=== PATIENT | female | born 1995 | race American Indian/Alaskan Native ===

== ENCOUNTER 2017-02-11 21:32 | Emergency (ER) | payer MEDICAID ==
[2017-02-11 21:50] VITALS: BP 134/87
== END 2017-02-12 00:30 | disposition left against medical advice (07) ==
LOC: ED 21:32
DX: Z53.21 Procedure and treatment not carried out due to patient leaving prior to being seen by health care provider (principal)

== ENCOUNTER 2018-10-14 18:36 | Inpatient (IN) | payer MEDICAID ==
[2018-10-14] MEDS ORDERED: LACTATED RINGERS 500 ML IV ONE (19:31)
[2018-10-14] MEDS ORDERED: AMPICILLIN/NS 2 GM/100 ML 2 GM/100 ML BAG IV ONE (20:00)
[2018-10-14 20:06] LABS: Basophils # (Auto) 0.1 K/mm3 (0.0-0.1); Basophils % (Auto) 0.5 % (0.0-1.8); Eosinophils # (Auto) 0.1 K/mm3 (0.0-0.4); Eosinophils % (Auto) 1.2 % (0.0-4.3); Hematocrit 40.3 % (30.3-42.9); Hemoglobin 13.4 gm/dl (10.1-14.3); Lymphocytes # (Auto) 2.5 K/mm3 (1.2-5.4); Lymphocytes % (Auto) 22.1 % (13.4-35.0); Mean Corpuscular HGB Conc 33 % (30-34); Mean Corpuscular Volume 90 fl (79-97); Platelet Count 363 K/mm3 (140-440); Red Cell Distribution Width 14.5 % (13.2-15.2)
[2018-10-14] MEDS ORDERED: PITOCin/NS 20 UNIT/1000ML DRIP 20,000 MILLIUNITS/1,000 ML BAG IV ONE (20:32)
--- NOTE | 2018-10-14 20:48 | History and Physical Report ---
History of Present Illness Date of admission: 10/14/18 19:32 Chief complaint: uterine contractions/labor History of present illness: 23yo , 39 3/7wk, no care, LMP 01/12/2018 MARY KAY 10/18/18 based on LMP presents in active labor. She reports spotting that began yesterday, contract ions that began today and is now /-2. She reports good movement. She admits to no care but states [facility] and told her MARY KAY was 10/20/18. An US done y esterday at [facility] shows EGA 34 6/7, DANDY 7, grade 3 placenta, cephalic. Past History Past Medical History: no pertinent history Past Surgical History: no surgical history Family/Genetic History: other (denies HIV, hepatitis) Social history: no significant social history, other (no care) - Obstetrical History : 3 Hx # Term Pregnancies: 1 Number of Pregnancies: 1 Medications and Allergies Allergies Allergy/AdvReac Type Severity Reaction Status Date / Time No Known Allergies Allergy Unverified 12/29/13 17:31 Home Medications Medication Instructions Recorded Confirmed Last Taken Type Cyclobenzaprine HCl [Flexeril 5mg] 5 mg PO Q8H PRN #15 tablet 12/29/[address] [Cesar Hess] 75 mg PO Q12H PRN #14 tablet 12/29/13 Unknown Rx Active Meds: Active Medications Ampicillin Sodium (Ampicillin/Ns 2 Gm/100 Ml) 2 gm in 100 mls @ 100 mls/hr IV ONCE ONE Stop: 10/14/18 20:59 Last Admin: 10/14/18 19:54 Dose: 100 mls/hr Documented by: Ampicillin Sodium (Ampicillin/Ns 1 Gm/50 Ml) 1 gm in 50 mls @ 100 mls/hr IV Q4H KAYLA; Protocol - Vital Signs Vital signs: Vital Signs Pulse BP 85 115/72 10/14/18 18:59 10/14/18 18:59 Temp Pulse Resp BP Pulse Ox 98.9 F 75 16 134/73 10/14/18 19:17 10/14/18 20:24 10/14/18 19:17 10/14/18 20:24 - Physical Exam Abdomen: Positive: soft Vulva: both: normal - Obstetrical FHR: category 1 Cervical Dilatation: 9 Cervical Effacement Percentage: 80 station: -2 Uterine Contraction Pattern: Regular Results Result Diagrams: 10/14/18 19:33 Abnormal lab results 10/14/18 Range/Units 19:33 WBC 11.5 H (4.5-11.0) K/mm3 [place] % (Auto) 9.0 H (0.0-7.3) % [place] # 1.0 H (0.0-0.8) K/mm3 All other labs normal. Assessment and Plan - Patient Problems (1) No care in current Current Visit: Yes Status: Acute Plan to address problem: 1. No care labs (inclu. Rapid HIV) 2. GBS prophylaxis 3. Confirm presentation 4. Anticipate spontaneous vaginal delivery.
[2018-10-14] MEDS ORDERED: XYLOCAINE 2% INFILTRATI ONE (21:13)
[2018-10-14] MEDS: IBUPROFEN PO SCH (21:15)
[2018-10-14] MEDS ORDERED: TYLENOL PO PRN (21:16)
[2018-10-14] MEDS ORDERED: ZOFRAN IV PRN (21:16)
[2018-10-14] MEDS ORDERED: BENADRYL PO PRN (21:16)
[2018-10-14] MEDS ORDERED: DULCOLAX PR PRN (21:16)
[2018-10-14] MEDS ORDERED: LANSINOH TP PRN (21:16)
[2018-10-14] MEDS ORDERED: PHENERGAN PO PRN (21:16)
[2018-10-14] MEDS ORDERED: TUCKS PAD TP PRN (21:16)
--- NOTE | 2018-10-14 21:20 | Ultrasound Report ---
US OB limited INDICATION / CLINICAL INFORMATION: labor. position only. COMPARISON: Yesterday. FINDINGS: There is a single intrauterine in a cephalic presentation. The heart rate is 137 bpm. Signer Name: Carl Cross MD Signed: 10/14/2018 9:15 PM Workstation Name: [id number]
--- NOTE | 2018-10-14 21:26 | Procedure Note ---
OB Delivery Note - Delivery Estimated blood loss: other (150ml) - Vaginal Delivery position: OA Intrapartum events: no care Delivery induction: none Delivery monitor: external FHT Route of delivery: Delivery placenta: spontaneous Episiotomy: none Delivery laceration: none Anesthesia: none Delivery comments: Delivery spontaneous in lithotomy position; perineum intact. bulb suctioned and placed on maternal abdomen. NICU present after delivery states appears term. - A at 1 minute: 8 at 5 minutes: 8 (-2 color;) Infant Gender: Female (Weight 5lb 8oz 2484g)
[2018-10-14] MEDS ORDERED: SODIUM CHLORIDE FLUSH SYRINGE 10 ML IV PRN (22:00)
[2018-10-14] MEDS ORDERED: PITOCin/NS 20 UNIT/1000ML DRIP 20 UNITS/1,000 ML BAG IV SCH (22:00)
[2018-10-14] MEDS ORDERED: LACTATED RINGERS 1,000 ML IV SCH (22:00)
[2018-10-15] MEDS ORDERED: AMPICILLIN/NS 1 GM/50 ML 1 GM/50 ML BAG IV SCH
[2018-10-15 00:28] LABS: Bilirubin,Urine NEG (Negative); Blood,Urine MOD (Negative); Color,Urine Red (Yellow); Urobilinogen,Urine < 2.0 mg/dL (<2.0)
[2018-10-15 00:29] LABS: RBC,Urine > 182.0 /HPF (0.0-6.0); WBC,Urine > 182.0 /HPF (0.0-6.0)
[2018-10-15 00:35] LABS: Amphetamine Screen,Urine PRESUMPTIVE NEGATIVE; Benzodiazepines Screen,Urine PRESUMPTIVE NEGATIVE; Cannabinoid Screen,Urine PRESUMPTIVE NEGATIVE; Cocaine Screen,Urine PRESUMPTIVE NEGATIVE; Methadone Screen,Urine PRESUMPTIVE NEGATIVE; Opiate Screen,Urine PRESUMPTIVE NEGATIVE
[2018-10-15] MEDS: IBUPROFEN PO SCH ×4 (05:10→19:06)
[2018-10-15] MEDS ORDERED: BOOSTRIX IM ONE (06:00)
[2018-10-15 10:35] LABS: Hematocrit 34.9 % (30.3-42.9); Hemoglobin 11.2 gm/dl (10.1-14.3)
--- NOTE | 2018-10-15 13:18 | Progress Note ---
Assessment and Plan - Patient Problems (1) No care in current Current Visit: No Status: Acute Plan to address problem: 1. Recovering well. Given information on follow-up in office 6 weeks . 2. Denies receiving Rhogam antepartum. 3. Desires Depo-Provera - Ordered. 4. Plan discharge within 24hrs. discharge pending management of hyperbili. Subjective - Subjective Interval history: 23yo now PPD#1 doing well. Bleeding well controlled. Denies heavy bleeding. She states she lives with her brother and has what she needs for the baby. Case management saw her today and states she received resources for discharge. : other (recieving bili therapy) Objective - Vital Signs Latest vital signs: Vital Signs Temp Pulse Resp BP BP Pulse Ox 10/15/18 10:01 98.6 F 76 18 103/66 100 10/15/18 04:32 98.5 F 90 18 118/71 98 10/15/18 04:18 99.0 F 65 16 108/58 98 10/14/18 23:48 98.9 F 73 20 114/71 98 10/14/18 23:02 97 H 98 10/14/18 23:00 98.1 F 87 15 120/68 10/14/18 22:57 87 120/68 99 10/14/18 22:52 95 H 99 10/14/18 22:47 97 H 99 10/14/18 22:42 94 H 122/56 99 10/14/18 22:37 90 99 10/14/18 22:32 91 H 99 10/14/18 22:30 98.1 F 91 H 15 121/62 10/14/18 22:28 93 H 121/62 10/14/18 22:27 84 99 10/14/18 22:22 90 98 10/14/18 22:20 108 H 119/78 10/14/18 22:00 105 H 16 121/68 10/14/18 21:58 105 H 121/68 10/14/18 21:43 105 H 121/76 10/14/18 21:31 102 H 125/72 10/14/18 21:30 102 H 16 125/72 10/14/18 21:15 98.1 F 100 H 16 136/70 10/14/18 21:13 112 H 136/70 10/14/18 21:03 102 H 118/63 10/14/18 20:24 75 134/73 10/14/18 19:17 98.9 F 78 16 118/72 10/14/18 19:16 78 118/72 10/14/18 18:59 85 115/72 Intake and Output 10/14/18 10/15/18 10/15/18 23:59 07:59 15:59 Intake Total 700 Output Total 600 500 Balance 100 -500 Intake: IV 500 Lactated Ringers 500 ml @ 500 999 mls/hr IV BOLUS ONE Rx#:[id number] Oral 200 Output: Urine 600 500 Void 600 500 Other: Total, Intake Amount 200 Total, Output Amount 600 150 Weight 52.163 kg Estimated Blood Loss 150 - Exam Uterus: Present: fundal height below umbilicus Extremities: Present: normal - Labs Labs: Abnormal lab results 10/14/18 10/14/18 Range/Units 19:33 23:00 WBC 11.5 H (4.5-11.0) K/mm3 [place] % (Auto) 9.0 H (0.0-7.3) % [place] # 1.0 H (0.0-0.8) K/mm3 Urine WBC (Auto) > 182.0 H (0.0-6.0) /HPF
[2018-10-15] MEDS ORDERED: DEPO-PROVERA (CONTRACEPTION) IM ONE (21:34)
--- NOTE | 2018-10-15 21:57 | Discharge Summary ---
Providers - Providers Date of Admission: 10/14/18 19:32 Attending physician: SATISH AVILA 10/14/18 21:26 Consult to Case Management [CONS] Routine Services Needed at Discharge: Cook Manager Notified:: case management Phone number called:: [phone] Comment:: No care Additional Physician Instructions: Please see patient prior to discharge on 10/16/18. Possible history of depression in previous p regnancy and no care this . Primary care physician: [employer]IST[employer] Hospitalization Reason for admission: active labor Delivery: Episiotomy: none Laceration: none complications: none Discharge diagnosis: IUP at term delivered Condition at discharge: Good Disposition: DC-01 TO HOME OR SELFCARE - Discharge Diagnoses (1) No care in current Status: Acute Plan - Provider Discharge Summary Activity: routine, no sex for 6 weeks, no heavy lifting 4 weeks, no strenuous exercise Diet: routine Instructions: routine Additional instructions: [] Smoking cessation referral if applicable(refer to patient education folder for contact #) [] Refer to [facility] Booklet Call your doctor immediately for: * Fever > 100.5 * Heavy vaginal bleeding ( >1 pad per hour) * Severe persistent headache * Shortness of breath * Reddened, hot, painful area to leg or breast * Drainage or odor from incision. * Keep incision clean and dry at all times and follow doctor's instructions regarding bathing/showering - Follow up plan Follow up: PRIMARY CARE, [Primary Care Provider] - 7 Days
[2018-10-16] MEDS: IBUPROFEN PO SCH ×3 (04:11→15:44)
[2018-10-16] MEDS ORDERED: DEPO-PROVERA (CONTRACEPTION) IM NR (13:30)
[2018-10-16 18:00] VITALS: BP 114/70
== END 2018-10-16 16:45 | disposition home or self-care (01) | DRG 775 ==
LOC: TRG 18:36 → OBSVTOIN 19:32 → LD 19:32 → OB 23:35
PROVIDERS: ADMIT Obstetrics & Gynecology; ATTEND Obstetrics & Gynecology
PROC: 10E0XZZ Delivery of Products of Conception, External Approach (ICD-10-PCS; principal; 2018-10-14)
PROC: 3E0234Z Introduction of Serum, Toxoid and Vaccine into Muscle, Percutaneous Approach (ICD-10-PCS; 2018-10-15)
PROC: 3E0334Z Introduction of Serum, Toxoid and Vaccine into Peripheral Vein, Percutaneous Approach (ICD-10-PCS; 2018-10-16)
DX: O80 Encounter for full-term uncomplicated delivery (principal); Z3A.39 39 weeks gestation of pregnancy; Z37.0 Single live birth; Z79.899 Other long term (current) drug therapy; Z23 Encounter for immunization
CPT/HCPCS: 36415; 76815; 80307; 81001; 85014; 85018; 85025; 85461; 86592; 86706; 86762; 86803; 86850; 86870; 86900; 86901; 87806; 88307; 90471; 90715; G0378; J0290; J1050; J2590; J2790; J7120

== ENCOUNTER 2021-09-30 06:15 | Emergency (ER) | payer MEDICAID | END 2021-09-30 08:54 | disposition left against medical advice (07) | LOC: ED 06:15 | DX: S09.90XA Unspecified injury of head, initial encounter (principal); Z53.21 Procedure and treatment not carried out due to patient leaving prior to being seen by health care provider; X58.XXXA Exposure to other specified factors, initial encounter; Y93.89 Activity, other specified; Y92.89 Other specified places as the place of occurrence of the external cause; Y99.8 Other external cause status ==